=== PATIENT | male | born 1965 | race Caucasian/White ===

== ENCOUNTER → 2016-12-13 | Outpatient (CLI) | payer OTHER ==
[2016-12-13 14:09] LABS: BUN 15 mg/dL (7-18)
[2016-12-13 14:12] LABS: GFR (ESTIMATED) 90 ML/MIN (>60)
== END ==
LOC: LAB 12:22
PROVIDERS: Internal Medicine Adolescent Medicine
DX: E11.69 Type 2 diabetes mellitus with other specified complication (principal)